=== PATIENT | female | born 1955 | race Caucasian/White ===

== ENCOUNTER 2022-09-07 12:40 | Outpatient (CLI) | payer OTHER, MEDICAID | END 2022-09-07 12:41 | disposition home or self-care (01) | LOC: CSHMAMMO 12:40 | PROVIDERS: ATTEND Nurse Practitioner Family | DX: Z12.31 Encounter for screening mammogram for malignant neoplasm of breast (principal); Z13.820 Encounter for screening for osteoporosis; M81.0 Age-related osteoporosis without current pathological fracture; Z78.0 Asymptomatic menopausal state; Z80.3 Family history of malignant neoplasm of breast | CPT/HCPCS: 77063; 77067; 77080 ==

== ENCOUNTER 2024-09-02 09:57 | Outpatient (CLI) | payer OTHER | END 2024-09-02 09:58 | disposition home or self-care (01) | LOC: CSHMAMMO 09:57 | PROVIDERS: ATTEND Nurse Practitioner Family | DX: Z12.31 Encounter for screening mammogram for malignant neoplasm of breast (principal); M81.0 Age-related osteoporosis without current pathological fracture; Z80.3 Family history of malignant neoplasm of breast | CPT/HCPCS: 77063; 77067; 77080 ==

== ENCOUNTER 2024-09-23 14:41 | Outpatient (CLI) | payer OTHER | END 2024-09-23 14:42 | disposition home or self-care (01) | LOC: CSHMRI 14:41 | PROVIDERS: ATTEND Nurse Practitioner Family | DX: M47.812 Spondylosis without myelopathy or radiculopathy, cervical region (principal); M54.16 Radiculopathy, lumbar region; M48.02 Spinal stenosis, cervical region | CPT/HCPCS: 72141 ==

== ENCOUNTER 2024-10-09 09:17 | Outpatient (CLI) | payer OTHER | END 2024-10-09 09:18 | disposition home or self-care (01) | LOC: CSHCT 09:17 | PROVIDERS: ATTEND Nurse Practitioner Family | DX: M47.22 Other spondylosis with radiculopathy, cervical region (principal) | CPT/HCPCS: 72125 ==

== ENCOUNTER 2025-01-06 13:18 | Outpatient (CLI) | payer OTHER, MEDICAID ==
[~2025-01-06 13:18] MED LIST: Magnevist 469MG/ML 20 ML VIAL ONE
== END 2025-01-06 13:19 | disposition home or self-care (01) ==
LOC: CSHMRI 13:18
PROVIDERS: ATTEND Surgery
DX: S06.0XAA Concussion with loss of consciousness status unknown, initial encounter (principal); R42 Dizziness and giddiness; M79.606 Pain in leg, unspecified; S52.572P Other intraarticular fracture of lower end of left radius, subsequent encounter for closed fracture with malunion; S63.8X2A Sprain of other part of left wrist and hand, initial encounter; S63.592A Other specified sprain of left wrist, initial encounter; R94.02 Abnormal brain scan; M47.816 Spondylosis without myelopathy or radiculopathy, lumbar region; S52.602D Unspecified fracture of lower end of left ulna, subsequent encounter for closed fracture with routine healing
CPT/HCPCS: 36415; 70553; 72148; 76376; 82565